=== PATIENT | female | born 1975 | race African-American/Black ===

== ENCOUNTER 2016-12-11 12:38 | Emergency (ER) | payer MEDICAID | END 2016-12-11 14:00 | disposition home or self-care (01) | LOC: D.ER 12:38 | DX: I10 Essential (primary) hypertension (principal) ==

== ENCOUNTER 2017-03-29 15:49 | Emergency (ER) | payer SELFPAY | END 2017-03-29 18:27 | disposition home or self-care (01) | LOC: D.ER 15:49 | DX: K02.9 Dental caries, unspecified (principal); K08.89 Other specified disorders of teeth and supporting structures; I10 Essential (primary) hypertension ==